=== PATIENT | female | born 1995 | race Caucasian/White ===

== ENCOUNTER 2020-01-02 23:29 | Emergency (ER) | payer SELFPAY ==
[~2020-01-02] VITALS: Ht 167.6 cm; Wt 93.0 kg
[2020-01-02 23:39] VITALS: Ht 167.6 cm; Wt 93.0 kg
[2020-01-03 00:32] LABS: BASOPHIL % 0.3 % (0-2); PLATELET COUNT 357 x10^3mcL (130-400); RED CELL DISTRIBUTION WIDTH 17.1 % (11.5-14.5)
[2020-01-03 00:39] LABS: CALCIUM 9.1 mg/dL (8.5-10.1); CARBON DIOXIDE 27.6 mmol/L (21-32); CHLORIDE SERUM 102 mmol/L (98-107); CREATININE SERUM 0.8 mg/dL (0.6-1.0); GFR1 > 60 mL/min; GLUCOSE SERUM 119 mg/dL (74-106); POTASSIUM SERUM 3.9 mmol/L (3.5-5.1); SODIUM SERUM 137 mmol/L (136-145)
[2020-01-03 00:44] LABS: ALBUMIN 3.7 g/dL (3.4-5.0); ALKALINE PHOSPHATASE 68 U/L (46-116); ALT/SGPT 17 U/L (14-59); AST/SGOT 20 U/L (15-37); BILIRUBIN TOTAL 0.3 mg/dL (0.20-1.00); TOTAL PROTEIN, SERUM 8.2 g/dL (6.4-8.2)
[2020-01-03 02:44] VITALS: BP 115/83
== END 2020-01-03 02:33 | disposition home or self-care (01) ==
LOC: ED 23:29
PROVIDERS: Emergency Medicine
DX: N94.6 Dysmenorrhea, unspecified (principal)
CPT/HCPCS: J1885; Q0092